=== PATIENT | female | born 1990 | race Caucasian/White ===

== ENCOUNTER → 2017-05-30 | Outpatient (CLI) | payer OTHER ==
[~2017-05-30] MED LIST: BACTRIM DS 8001 TAB PO; BENADRYL25 M1 PO; FAMILY PHARMAC0.4 MG PO; HAIR FORMULA EX1 TAB PO; HYDROCODONE-APA1 TA1 PO; HYOSCYAMINE0.125 M2 PO; IRON TABLETS325 MG PO; MOTRIN600 M1 PO; PERCOCET 650 MG1 TAB PO; POTASSIUM CHLO10 ME3 PO; PRENATAL PLUS1 TA1 PO; PRENATAL1 TA1 PO; SEPTRA DS 800 M1 TAB PO; TYLENOL325 MG PO; WOMEN'S DAILY1 TAB PO
[2017-05-30 11:01] LABS: HEMOGLOBIN 13.8 g/dL (12.2-16.2); LYMPH # 1.6 K/mm3 (0.7-4.5); LYMPH % 21.1 % (10-50.0)
[2017-05-30 12:42] LABS: AMPHETAMINES/METAMPHETAMINES NEGATIVE ng/mL (<1000)
[2017-05-30 14:19] LABS: ABO BLOOD TYPE A; RH BLOOD TYPE POSITIVE
[2017-05-31 19:28] LABS: HIV Screen 4th Generation wRfx Non Reactive (Non Reactive); Rapid Plasma Reagin, Quant Non Reactive (NonRea<1:1); Rubella Antibodies, IgG 4.86 index (Immune >0.99)
[2017-05-31 20:04] LABS: HBsAg Screen Negative (Negative)
== END ==
LOC: LAB 10:36
PROVIDERS: Obstetrics & Gynecology
DX: Z36 Encounter for antenatal screening of mother (principal); Z04.8 Encounter for examination and observation for other specified reasons; Z34.80 Encounter for supervision of other normal pregnancy, unspecified trimester
CPT/HCPCS: G0432

== ENCOUNTER → 2017-07-18 | Outpatient (CLI) | payer OTHER ==
[2017-07-24 12:11] LABS: Gest. Age on Collection Date 16.1; Results REPORT
[2017-07-24 12:12] LABS: AFP Value 47.6; DIA MoM 1.07; DIA Value 189.39; DSR (Second Trimester) 1 IN 5942; Insulin Dep Diabetes NOT PROVIDED; Maternal Age At EDD 29.5; OSBR Risk 1 IN 2965; hCG MoM 1.04; hCG Value 40474; uE3 MoM 0.94; uE3 Value 0.78
== END ==
LOC: LAB 10:19
PROVIDERS: Obstetrics & Gynecology
DX: Z36 Encounter for antenatal screening of mother (principal)

== ENCOUNTER 2017-09-24 12:49 | Outpatient (CLI) | payer OTHER ==
[~2017-09-24] VITALS: Ht 160 cm; Wt 75.3 kg
[2017-09-24 13:37] VITALS: BP 119/62
[2017-09-24 13:39] LABS: HEMOGLOBIN 11.7 g/dL (12.2-16.2); LYMPH # 1.7 K/mm3 (0.7-4.5)
[2017-09-24 14:13] LABS: URINE BILIRUBIN - DIPSTICK NEGATIVE (NEG); URINE BLOOD NEGATIVE (NEG)
== END 2017-09-24 14:15 | disposition home or self-care (01) ==
LOC: OB 12:49 → OBOUT 12:49
PROVIDERS: Nurse Practitioner Obstetrics & Gynecology
DX: O26.92 Pregnancy related conditions, unspecified, second trimester (principal); Z3A.25 25 weeks gestation of pregnancy; R10.9 Unspecified abdominal pain; R19.7 Diarrhea, unspecified

== ENCOUNTER 2017-10-12 09:46 | Emergency (ER) | payer OTHER ==
[~2017-10-12] VITALS: Ht 160 cm; Wt 77.1 kg
--- OUTSIDE RECORDS SUMMARY | 2017-10-12 09:51 | External Medical Summary Rpt | CCD ---
Author Author , JARON SALMERON Address Unknown Phone [email or web address] Care Team Providers Care Bill Distributor Name Role Phone Duog Cleveland MD, Unavailable Unavailable Doug Cleveland MD [facility], [facility] Purpose Continuity of Care Document - 01-26-2013 through 2016 Problems Code Diagnosis DOS Provider Status [id number] [facility] K56.7 ILEUS, UNSPECIFIED Allergies, Adverse Reactions, Alerts Type Drug Allergy Adverse Reaction to Substance Substance Reaction Severity Erythromycin I-HIVES Intermediate Medications Na ND Rx Da Fi Fi Am Da Di Ph RX Ph St me C No te ll ll ou ys ag ar # ys at rm s nt no ma ic us Or Da si cy ia de te s n re d TR 04 03 2 No OL 11 -1 AM 67 3- Lo IN 05 20 ng E 70 13 er SA 3 LI Ac CY ti LA ve TE 10 % CR EA M Ce 00 03 0 No fa 78 -1 zo 19 3- Lo li 33 20 ng n 99 13 er 1G 6 M Ac Vi ti al ve SO 00 03 0 No DI 40 -1 UM 97 3- Lo 98 20 ng CH 43 13 er LO 7 RI Ac DE ti ve 0. 9% SO DEREJE TI ON Ce 00 03 0 No fa 78 -1 zo 19 2- Lo li 33 20 ng n 99 13 er 1G 6 M Ac Vi ti al ve AM 00 03 1 No PI 78 -1 CI 19 2- Lo LL 41 20 ng IN 39 13 er 2 2 Ac GM ti ve A- V AL So 00 03 1 No di 07 -1 um 47 2- Lo 10 20 ng Ch 12 13 er lo 3 ri Ac de ti ve 0. 9% 10 0M L Ad v SO 00 03 1 No DI 40 -1 UM 97 2- Lo 98 20 ng CH 42 13 er LO 0 RI Ac DE ti ve 0. 9% SO DEREJE TI ON Ce 00 03 1 No fa 78 -1 zo 19 2- Lo li 33 20 ng n 99 13 er 1G 6 M Ac Vi ti al ve DE 00 03 1 No XT 40 -1 RO 97 2- Lo SE 92 20 ng 90 13 er 5% 9 -L Ac R ti IV ve SO DEREJE TI ON PI 11 03 0 No TO 11 -1 CI 11 2- Lo N 11 20 ng 30 13 13 er 3 UN Ac IT ti S/ ve LR 50 0M L IV LA [address] 40 -1 AT 97 2- Lo ED 95 20 ng 30 13 er RI 9 NG Ac ER ti S ve IN JE CT IO N Ce 00 03 0 No fa 78 -1 zo 19 2- Lo li 33 20 ng n 99 13 er 1G 6 M Ac Vi ti al ve MA 00 03 3 No PA 90 -1 P 41 2- Lo 32 98 20 ng 5 26 13 er MG 1 Ac TA ti BL ve ET Ib 62 03 3 No up 58 -1 ro 40 2- Lo fe 74 20 ng n 60 13 er 40 1 0M Ac G ti Ta ve bl et TE 20 03 3 No ND 45 -1 ER 10 2- Lo 87 20 ng CA 12 13 er RE 2 Ac LA ti NO ve LI N CR EA M Mo 00 03 1 No rp 40 -1 hi 91 2- Lo ne 76 20 ng 23 13 er 2M 0 G/ Ac Ml ti ve Sy ri ng e OX 00 03 3 No YC 40 -1 OD 60 2- Lo ON 55 20 ng E 26 13 er HC 2 L Ac 5 ti MG ve TA BL ET SE 67 03 3 No NO 61 -1 KO 80 2- Lo T- 31 20 ng S 00 13 er TA 1 BL Ac ET ti ve Si 00 03 3 No me 18 -1 th 28 2- Lo ic 64 20 ng on 38 13 er e 9 80 Ac MG ti ve Ch ew ab le Ta bl MO 00 03 1 No OM 64 -1 ET 11 2- Lo WARREN 49 20 ng ZI 53 13 er NE 5 Ac 25 ti ve MG /M L AM PU L Vital Signs 01-26-2013 12:21 Name Value Interpretat Reference Comment ion Range Weight 173 [lb_av] Measured Weight 78.472 kg Measured Results Labs Lab Lab Date Result Refere Interp Status Commen Order Detail nces retati t Range on CBC w auto diff (09-24-2017 13:30) Blood = 12.2 4.8-10. complet leukocy 017 K/MM3 8 ed nan 13:30 count (number /volume ) Automat = 13.2 11.5-17 complet ed 017 % .5 ed erythro 13:30 cyte distrib ution width Red = 3.89 4.2-5.4 complet blood 017 M/mm3 ed cell 13:30 count Blood = 210 142-424 complet platele 017 K/mm3 ed t count 13:30 Automat = 7.7 7.4-10. complet ed 017 fl 4 ed blood 13:30 platele t mean volume darien Davie % = 3.6 % 1.7-9.3 complet 017 ed 13:30 Absolut = 0.4 0.1-1.0 complet e 017 K/mm3 ed monocyt 13:30 e count Automat = 89.0 82.2-97 complet ed 017 fl .8 ed erythro 13:30 cyte mean corpusc ular v Automat = 33.9 31.8-35 complet ed 017 g/dl .4 ed erythro 13:30 cyte mean corpusc ular h Mean = 30.2 27-31.2 complet corpusc 017 pg ed ular 13:30 hemoglo bin (MCH) determ Lymphoc = 14.0 10-50.0 complet yte 017 % ed count, 13:30 blood, automat ed Absolut = 1.7 0.7-4.5 complet e 017 K/mm3 ed lymphoc 13:30 yte count Blood = 11.7 12.2-16 complet hemoglo 017 g/dL .2 ed bin 13:30 measure ment (mass/v olum Blood = 34.6 37.0-47 complet hematoc 017 % .0 ed rit 13:30 (volume fractio n) Granulo = 80.5 37.0-80 complet cyte 017 % .0 ed percent 13:30 age Blood = 9.8 1.8-7.8 complet granulo 017 K/mm3 ed cytes 13:30 automat ed count (numb Automat = 1.6 % 0.1-12. complet ed 017 0 ed blood 13:30 eosinop hils/10 0 leukocy t Automat = 0.2 0.0-0.4 complet ed 017 K/mm3 ed blood 13:30 eosinop hil count Baso % = 0.2 % 0.1-2.0 complet 017 ed 13:30 Automat = 0.0 0-0.2 complet ed 017 K/MM3 ed blood 13:30 basophi l count (count/ vo Basic metabolic panel (09-24-2017 13:30) Serum = 139 136-145 complet sodium 017 mmoL/L ed measure 13:30 ment Serum = 3.1 3.5-5.1 complet potassi 017 mmoL/L ed um 13:30 measure ment Serum = 126 74-106 complet or 017 mg/dL ed plasma 13:30 glucose measure ment (mas Estimat = 118 59- complet ed 017 ML/MIN ed glomeru 13:30 lar filtrat ion rate (GF Comment: REFERENCE RANGE: >60 ML/MIN/1.73 SQUARE METERS Comment: If this patient is -Vincentian, then multiply the Comment: result by 1.210. Estimat = 164 50-200 complet ion of 017 ML/MIN ed creatin 13:30 ine renal clearan ce Serum = 0.6 0.55-1. complet or 017 mg/dL 02 ed plasma 13:30 creatin ine measure ment ( Carbon = 22 21.0-32 complet dioxide 017 mmoL/L .0 ed 13:30 measure ment Serum = 106 98-107 complet or 017 mmoL/L ed plasma 13:30 chlorid e measure ment (mo Serum = 8.5 8.5-10. complet or 017 mg/dL 1 ed plasma 13:30 calcium measure ment (mas Serum = 5 7-18 complet or 017 mg/dL ed plasma 13:30 urea nitroge n measure men Urinalysis with microscopy (09-24-2017 13:00) Comment: Collected by nurse? Y Comment: Hold specimen in OE? N Urine 20 - 50 O complet leukocy 017 ed nan 13:00 wbc/hpf count (number /volume ) Urine 0.2 0.2 NEG complet urobili 017 L ed nogen 13:00 E.U./dL detecti on by test str [place] 10-20 0-5 complet s 017 10-20 L ed epithel 13:00 #/hpf ial cells detecti on in u Urine = 1.020 1.005-1 complet specifi 017 .030 ed c 13:00 gravity measure ment Urine = NEG complet protein 017 NEGATIV ed 13:00 E mg/dL measure ment by automat ed t Urine = 6.0 5.0-8.5 complet pH 017 ed 13:00 Urine NEGATIV NEG complet nitrite 017 E ed 13:00 NEGATIV detecti E L on by test strip Mucus 1+ 1+ L OCC complet detecti 017 ed on in 13:00 urine sedimen t by lig Mucus 2+ 2+ L NEG complet detecti 017 ed on in 13:00 urine sedimen t by lig Urine NEGATIV NEG complet ketones 017 E ed 13:00 NEGATIV detecti E L on by mg/dL automat ed nan Glucose = NEG complet ur 017 NEGATIV ed test 13:00 E strip Urine YELLOW YELLOW complet color 017 YELLOW ed 13:00 L Urine NEGATIV NEG complet blood 017 E ed detecti 13:00 NEGATIV on E L Urine NEGATIV NEG complet total 017 E ed bilirub 13:00 NEGATIV in E L detecti on by test Bacteri 2+ 2+ L O complet a 017 ed detecti 13:00 on in urine sedimen t by Urine SL CLEAR complet appeara 017 CLOUDY ed nce 13:00 SL determi CLOUDY nation L Urinalysis dipstick W Reflex Microscopic panel in Urine (09-24-2017 13:00) Bacteri 2+ O complet a 017 ed [Presen 13:00 ce] in Urine sedimen t by Light microsc opy Mucus 1+ OCC complet [Presen 017 ed ce] in 13:00 Urine sedimen t by Light microsc opy Epithel 10-20 0#/hp complet ial 017 f - ed cells.s 13:00 5#/hp quamous f [Presen ce] in Urine sedimen t by Microsc opy high power field Leukocy 20-50 O complet nan 017 wbc/hpf ed [#/volu 13:00 me] in Urine Urinalysis dipstick W Reflex Microscopic panel in Urine (09-24-2017 13:00) Appeara SL CLEAR complet nce of 017 CLOUDY ed Urine 13:00 Bilirub NEGATIV NEG complet in 017 E ed [Presen 13:00 ce] in Urine by Test strip Erythro NEGATIV NEG complet cytes 017 E ed [Presen 13:00 ce] in Urine Color YELLOW YELLOW complet of 017 ed Urine 13:00 Ketones NEGATIV NEG complet 017 E ed [Presen 13:00 ce] in Urine by Automat ed test strip Mucus 2+ NEG Abnorma complet [Presen 017 l ed ce] in 13:00 Urine sedimen t by Light microsc opy Nitrite NEGATIV NEG complet 017 E ed [Presen 13:00 ce] in Urine by Test strip Urobili 0.2 NEG complet nogen 017 ed [Presen 13:00 ce] in Urine by Test strip Glucose, 1 hour after glucose administra (09-19-2017 14:30) Urine TRACE complet glucose 017 TRACE L ed 14:30 mg/ml detecti on by test strip Serum = 88 complet or 017 mg/dL ed plasma 14:30 glucose measure ment 1 ho CBC w auto diff (09-19-2017 14:30) Blood = 10.1 4.8-10. complet leukocy 017 K/MM3 8 ed nan 14:30 count (number /volume ) Automat = 13.2 11.5-17 complet ed 017 % .5 ed erythro 14:30 cyte distrib ution width Red = 4.01 4.2-5.4 complet blood 017 M/mm3 ed cell 14:30 count Blood = 225 142-424 complet platele 017 K/mm3 ed t count 14:30 Automat = 7.7 7.4-10. complet ed 017 fl 4 ed blood 14:30 platele t mean volume darien Davie % = 5.0 % 1.7-9.3 complet 017 ed 14:30 Absolut = 0.5 0.1-1.0 complet e 017 K/mm3 ed monocyt 14:30 e count Automat = 90.1 82.2-97 complet ed 017 fl .8 ed erythro 14:30 cyte mean corpusc ular v Automat = 33.9 31.8-35 complet ed 017 g/dl .4 ed erythro 14:30 cyte mean corpusc ular h Mean = 30.5 27-31.2 complet corpusc 017 pg ed ular 14:30 hemoglo bin (MCH) determ Lymphoc = 13.4 10-50.0 complet yte 017 % ed count, 14:30 blood, automat ed Absolut = 1.4 0.7-4.5 complet e 017 K/mm3 ed lymphoc 14:30 yte count Blood = 12.2 12.2-16 complet hemoglo 017 g/dL .2 ed bin 14:30 measure ment (mass/v olum Blood = 36.1 37.0-47 complet hematoc 017 % .0 ed rit 14:30 (volume fractio n) Granulo = 79.7 37.0-80 complet cyte 017 % .0 ed percent 14:30 age Blood = 8.1 1.8-7.8 complet granulo 017 K/mm3 ed cytes 14:30 automat ed count (numb Automat = 1.7 % 0.1-12. complet ed 017 0 ed blood 14:30 eosinop hils/10 0 leukocy t Automat = 0.2 0.0-0.4 complet ed 017 K/mm3 ed blood 14:30 eosinop hil count Baso % = 0.2 % 0.1-2.0 complet 017 ed 14:30 Automat = 0.0 0-0.2 complet ed 017 K/MM3 ed blood 14:30 basophi l count (count/ vo Glucose [Presence] in Urine by Test strip --1 hour post 75 g glucose PO (09-19-2017 14:30) Glucose TRACE complet 017 ed [Presen 14:30 ce] in Urine by Test strip Blood group antibody screen [Presence] in Serum or Plasma (05-30-2017 10:39) Blood NEGATIV NEGATIV complet group 017 E E ed antibod 10:39 y screen [Presen ce] in Serum or Plasma Rh [Type] in Blood (05-30-2017 10:39) Rh POSITIV complet [Type] 017 E ed in 10:39 Blood ABO group [Type] in Blood (05-30-2017 10:39) ABO A complet group 017 ed [Type] 10:39 in Blood Drugs identified in Urine by Screen method (05-30-2017) Ampheta NEGATIV <1000 complet mine 017 E ed [Presen ce] in Urine by Screen method 11-Hydr NEGATIV <50 complet oxy 017 E ed delta-9 tetrahy drocann abinol [Presen ce] in Unspeci fied specime n Choriogonadotropin.beta subunit ( test) [Presence] in Serum or Plasma (04-08-2017 10:12) Choriog 0 complet onadotr 017 ed opin.be 10:12 ta subunit (pregna ncy test) [Presen ce] in Serum or Plasma pH BldCo (01-26-2013 20:50) pH 7.36 7.35-7. complet BldCo 013 UNK 45 ed 20:50 URINALYSIS/COMPLETE (01-26-2013 14:09) URINE YELLOW YELLOW complet COLOR 013 ed 14:09 URINE CLEAR CLEAR complet APPEARA 013 ed NCE 14:09 URINE NEGATIV NEG complet GLUCOSE 013 E ed - 14:09 DIPSTIC K URINE NEGATIV NEG complet BILIRUB 013 E ed IN - 14:09 DIPSTIC K URINE NEGATIV NEG complet KETONE 013 E mg/dL ed 14:09 URINE 1.015 1.005-1 complet SPECIFI 013 UNK .030 ed C 14:09 GRAVITY URINE NEGATIV NEG complet BLOOD 013 E ed 14:09 URINE 8.0 UNK 5.0-8.5 complet PH 013 ed 14:09 URINE NEGATIV NEG complet PROTEIN 013 E mg/dL ed - 14:09 DIPSTIC K URINE 0.2 NEG complet UROBILI 013 E.U./dL ed NOGEN - 14:09 DIPSTIC K URINE NEGATIV NEG complet NITRATE 013 E ed - 14:09 DIPSTIC K URINE NEGATIV NEG complet LEUK 013 E ed ESTERAS 14:09 E URINE OCC 0 complet RBC 013 rbc/hpf ed 14:09 URINE 5-10 0-5 complet SQUAMOU 013 #/hpf ed S CELLS 14:09 URINE 1+ O complet BACTERI 013 ed A 14:09 URINE 2+ NONE complet AMORPH 013 ed SEDIMEN 14:09 T CBC with AUTO DIFF (01-26-2013 05:35) WBC # 12.2 4.8-10. complet Bld 013 K/MM3 8 ed Auto 05:35 RBC # 4.04 4.2-5.4 complet Bld 013 M/mm3 ed Auto 05:35 Hgb 12.7 12.2-16 complet Bld-mCn 013 g/dL .2 ed c 05:35 Hct Fr 36.8 % 37.0-47 complet Bld 013 .0 ed 05:35 MCV RBC 03-12-2 91.2 fl 82.2-97 complet 013 .8 ed 05:35 MCH RBC 01-26-2 31.4 pg 27-31.2 complet Qn 013 ed Auto 05:35 MEAN 01-26-2 34.5 31.8-35 complet CORPUSC 013 g/dl .4 ed ULAR 05:35 HGB CONC RDW RBC 14.2 % 11.5-17 complet Auto 013 .5 ed 05:35 Platele 01-26-2 220 142-424 complet t Bld 013 K/mm3 ed Ql 05:35 Manual MEAN 8.0 fl 7.4-10. complet PLATELE 013 4 ed T 05:35 VOLUME Granulo 01-26-2 73.5 % 37.0-80 complet cytes 013 .0 ed Fr Bld 05:35 Auto LYMPH % 01-26-2 19.4 % 10-50.0 complet 013 ed 05:35 Monocyt 01-26-2 6.2 % 1.7-9.3 complet es Fr 013 ed Bld 05:35 Auto Eosinop -12-2 0.7 % 0.1-12. complet hil Fr 013 0 ed Bld 05:35 Auto Basophi 12-2 0.2 % 0.1-2.0 complet ls Fr 013 ed Bld 05:35 Auto Granulo 01-26-2 8.9 1.8-7.8 complet cytes # 013 K/mm3 ed Bld 05:35 Auto Lymphoc 01-26-2 2.4 0.7-4.5 complet ytes Fr 013 K/mm3 ed Bld 05:35 Auto Monocyt 12-2 0.8 0.1-1.0 complet es # 013 K/mm3 ed Bld 05:35 Auto Eosinop -12-2 0.1 0.0-0.4 complet hil # 013 K/mm3 ed Bld 05:35 Auto Basophi 12-2 0.0 0-0.2 complet ls # 013 K/MM3 ed Bld 05:35 Auto Procedures Procedure DOS Code Location Performer Comment LOW 74.1 Doug Cleveland [facility] Encounters Encounter Start End Date Code Location Performer Type Date Inpatient IMP Jermain Cleveland MD ([place]) 3 04:55 3 11:40 [facility].
--- OUTSIDE RECORDS SUMMARY | 2017-10-12 09:51 | External Medical Summary Rpt | CCD ---
Author Author , JARON SALMERON Address Unknown Phone beatricerosa .[employer] Care Team Providers Care Biometrics Instructor Name Role Phone Doug Cleveland MD, Unavailable Unavailable Doug Cleveland MD [facility], [facility] Purpose Continuity of Care Document - 01-26-2013 through 2016 Problems Code Diagnosis DOS Provider Status [id number] [facility] K56.7 ILEUS, UNSPECIFIED Allergies, Adverse Reactions, [...] ve Ch ew ab le Ta bl HI 00 03 1 No OM 64 -1 [...] blood 13:30 platele t mean volume darien [place] % = 3.6 % 1.7-9.3 complet 017 [...] SQUARE METERS Comment: If this patient is -Ukrainian, then multiply the Comment: result by 1.210. [...] blood 14:30 platele t mean volume darien [place] % = 5.0 % 1.7-9.3 complet 017 [...] Cleveland MD ([place]) 3 04:55 3 11:40 [facility].
--- OUTSIDE RECORDS SUMMARY | 2017-10-12 09:52 | External Medical Summary Rpt | CCD ---
Demographics Preferred Language Belizean Marital Status Unknown Church Affiliation Unknown Race Unknown Ethnic Group Unknown Author Author , JARON SALMEORN Address Unknown Phone Immunization No patient found.
--- OUTSIDE RECORDS SUMMARY | 2017-10-12 09:52 | External Medical Summary Rpt | CCD ---
Demographics Preferred Language Djiboutian Marital Status Unknown Jain Affiliation Unknown Race Unknown Ethnic Group Unknown Author Author , JARON SALMERON Address Unknown Phone Immunization No patient found.
--- OUTSIDE RECORDS SUMMARY | 2017-10-12 09:52 | External Medical Summary Rpt | CCD ---
Author Author [employer] Organization [employer] Address Unknown Phone Unavailable Purpose Continuity of Care Document - through 2016
--- OUTSIDE RECORDS SUMMARY | 2017-10-12 09:52 | External Medical Summary Rpt ---
Author Author EMMANAMAN Perez, JARON [employer] Address Unknown Phone Unavailable Results CBC W Auto Differential panel in Blood Observa Value Referen Units Interpr Notes Date tion ce etation Range Basophils 0 - 0.2 K/MM3 Normal No Sep 8 informati 2016 1:30 [#/volume on in PM ] in source Blood by data Automated count Basophils 0.1 - 2.0 % Normal No Sep 24 /100 informati 2017 1:30 leukocyte on in PM s in source Blood by data Automated count Eosinophi 0.0 - 0.4 K/mm3 Normal No Sep 24 ls informati 2016 1:30 [#/volume on in PM ] in source Blood by data Automated count Eosinophi 0.1 - % Normal No Sep 24 ls/100 12.0 informati 2017 1:30 leukocyte on in PM s in source Blood by data Automated count Granulocy 1.8 - 7.8 K/mm3 High No Sep 8 nan informati 2017 1:30 [#/volume on in PM ] in source Blood by data Automated count Granulocy 37.0 - % High No Sep 8 nan/100 80.0 informati 2016 1:30 leukocyte on in PM s in source Blood by data Automated count Hematocri 37.0 - % Low No Sep 24 t [Volume 47.0 informati 2016 1:30 on in PM Fraction] source of Blood data Hemoglobi 12.2 - g/dL Low No Sep 24 n 16.2 informati 2016 1:30 [Mass/vol on in PM ume] in source Blood data Lymphocyt 0.7 - 4.5 K/mm3 Normal No Sep 8 es informati 2016 1:30 [#/volume on in PM ] in source Unspecifi data ed specimen by Automated count Lymphocyt 10 - 50.0 % Normal No Sep 24 es informati 2016 1:30 [#/volume on in PM ] in source Unspecifi data ed specimen by Automated count Erythrocy 27 - 31.2 pg Normal No Sep 24 te mean informati 2017 1:30 corpuscul on in PM ar source hemoglobi data n [Entitic mass] Erythrocy 31.8 - g/dl Normal No Sep 24 te mean 35.4 informati 2016 1:30 corpuscul on in PM ar source hemoglobi data n concentra tion [Mass/vol ume] by Automated count Erythrocy 82.2 - fl Normal No Sep 24 te mean 97.8 informati 2016 1:30 corpuscul on in PM ar volume source [Entitic data volume] by Automated count Monocytes 0.1 - 1.0 K/mm3 Normal No Sep 24 informati 2016 1:30 [#/volume on in PM ] in source Blood by data Automated count Monocytes 1.7 - 9.3 % Normal No Sep 24 /100 informati 2017 1:30 leukocyte on in PM s in source Blood by data Automated count Platelet 7.4 - fl Normal No Sep 24 mean 10.4 informati 2016 1:30 volume on in PM [Entitic source volume] data in Blood by Automated count Platelets 142 - 424 K/mm3 Normal No Sep 24 informati 2016 1:30 [#/volume on in PM ] in source Blood data Erythrocy 4.2 - 5.4 M/mm3 Low No Sep 24 nan informati 2016 1:30 [#/volume on in PM ] in source Amniotic data fluid Erythrocy 11.5 - % Normal No Sep 24 te 17.5 informati 2016 1:30 distribut on in PM ion width source [Entitic data volume] by Automated count Leukocyte 4.8 - K/MM3 High No Sep 24 s 10.8 informati 2016 1:30 [#/volume on in PM ] in source Blood data Basic metabolic panel in Blood Observa Value Referen Units Interpr Notes Date tion ce etation Range Urea 7 - 18 mg/dL Low No Sep 24 nitrogen informati 2016 1:30 [Mass/vol on in PM ume] in source Serum or data Plasma Calcium 8.5 - mg/dL Normal No Sep 24 [Mass/vol 10.1 informati 2016 1:30 ume] in on in PM Serum or source Plasma data Chloride 98 - 107 mmoL/L Normal No Sep 24 [Moles/vo informati 2016 1:30 lume] in on in PM Serum or source Plasma data Carbon 21.0 - mmoL/L Normal No Sep 24 dioxide, 32.0 informati 2017 1:30 total on in PM [Moles/vo source lume] in data Serum or Plasma Creatinin 0.55 - mg/dL Normal No Sep 8 e 1.02 informati 2016 1:30 [Mass/vol on in PM ume] in source Serum or data Plasma Creatinin 50 - 200 ML/MIN Normal No Sep 24 e renal informati 2016 1:30 clearance on in PM source predicted data by Cockcroft -Gault formula Estimated 59- ML/MIN No REFERENCE Sep 24 informati RANGE: 2017 1:30 glomerula on in >60 PM r source ML/MIN/1. filtratio data 73 SQUARE n rate METERSIf (GF this patient is -A merican, then multiply theresult by 1.210. Glucose 74 - 106 mg/dL High No Sep 24 [Mass/vol informati 2016 1:30 ume] in on in PM Serum or source Plasma data Potassium 3.5 - 5.1 mmoL/L Low No Sep 24 informati 2016 1:30 [Moles/vo on in PM lume] in source Serum or data Plasma Sodium 136 - 145 mmoL/L Normal No Sep 24 [Moles/vo informati 2016 1:30 lume] in on in PM Serum or source Plasma data Urinalysis dipstick W Reflex Microscopic panel in Urine Observa Value Referen Units Interpr Notes Date tion ce etation Range Collected by nurse? Y Hold specimen in OE? N Appeara SL CLEAR No No No Sep 24 nce of CLOUDY informa informa informa 2016 Urine tion in tion in tion in 1:00 PM source source source data data data Bacteri 2+ O No No No Sep 24 a informa informa informa 2016 [Presen tion in tion in tion in 1:00 PM ce] in source source source Urine data data data sedimen t by Light microsc opy Bilirub NEGATIV NEG No No No Sep 24 in E informa informa informa 2016 [Presen tion in tion in tion in 1:00 PM ce] in source source source Urine data data data by Test strip Erythro NEGATIV NEG No No No Sep 24 cytes E informa informa informa 2016 [Presen tion in tion in tion in 1:00 PM ce] in source source source Urine data data data Color YELLOW YELLOW No No No Nov 8 of informa informa informa 2017 Urine tion in tion in tion in 1:00 PM source source source data data data Glucose NEG No No No Nov 8 [Mass/vol informati informati informati 2017 1:00 ume] in on in on in on in PM Urine by source source source Test data data data strip Ketones NEGATIV NEG mg/dL No No Nov 8 E informa informa 2017 [Presen tion in tion in 1:00 PM ce] in source source Urine data data by Automat ed test strip Mucus 2+ NEG No Abnorma No Nov 8 [Presen informa l informa 2017 ce] in tion in tion in 1:00 PM Urine source source sedimen data data t by Light microsc opy Mucus 1+ OCC No No No Nov 8 [Presen informa informa informa 2017 ce] in tion in tion in tion in 1:00 PM Urine source source source sedimen data data data t by Light microsc opy Nitrite NEGATIV NEG No No No Nov 8 E informa informa informa 2017 [Presen tion in tion in tion in 1:00 PM ce] in source source source Urine data data data by Test strip pH of 5.0 - 8.5 No Normal No Nov 8 Urine informati informati 2017 1:00 on in on in PM source source data data Protein NEG mg/dL No No Nov 8 [Mass/vol informati informati 2017 1:00 ume] in on in on in PM Urine by source source Automated data data test strip Specific 1.005 - No Normal No Nov 8 gravity 1.030 informati informati 2017 1:00 of Urine on in on in PM source source data data Epithel 10-20 0 - 5 #/hpf No No Nov 8 ial informa informa 2017 cells.s tion in tion in 1:00 PM quamous source source data data [Presen ce] in Urine sedimen t by Microsc opy high power field Urobili 0.2 NEG E.U./dL No No Nov 8 nogen informa informa 2017 [Presen tion in tion in 1:00 PM ce] in source source Urine data data by Test strip Leukocy [20 O wbc/hpf No No Nov 8 nan wbc/hpf informa informa 2017 [#/volu ; 50 tion in tion in 1:00 PM me] in wbc/hpf source source Urine ] data data Urinalysis dipstick W Reflex Microscopic panel in Urine Observa Value Referen Units Interpr Notes Date tion ce etation Range Collected by nurse? Y Hold specimen in OE? N Appeara SL CLEAR No No No Nov 8 nce of CLOUDY informa informa informa 2016 Urine tion in tion in tion in 1:00 PM source source source data data data Bilirub NEGATIV NEG No No No Sep 8 in E informa informa informa 2016 [Presen tion in tion in tion in 1:00 PM ce] in source source source Urine data data data by Test strip Erythro NEGATIV NEG No No No Sep 8 cytes E informa informa informa 2016 [Presen tion in tion in tion in 1:00 PM ce] in source source source Urine data data data Color YELLOW YELLOW No No No Nov 8 of informa informa informa 2016 Urine tion in tion in tion in 1:00 PM source source source data data data Glucose NEG No No No Sep 8 [Mass/vol informati informati informati 2017 1:00 ume] in on in on in on in PM Urine by source source source Test data data data strip Ketones NEGATIV NEG mg/dL No No Nov 8 E informa informa 2016 [Presen tion in tion in 1:00 PM ce] in source source Urine data data by Automat ed test strip Mucus 2+ NEG No Abnorma No Sep 8 [Presen informa l informa 2016 ce] in tion in tion in 1:00 PM Urine source source sedimen data data t by Light microsc opy Nitrite NEGATIV NEG No No No Nov 8 E informa informa informa 2016 [Presen tion in tion in tion in 1:00 PM ce] in source source source Urine data data data by Test strip pH of 5.0 - 8.5 No Normal No Nov 8 Urine informati informati 2017 1:00 on in on in PM source source data data Protein NEG mg/dL No No Nov 8 [Mass/vol informati informati 2017 1:00 ume] in on in on in PM Urine by source source Automated data data test strip Specific 1.005 - No Normal No Sep 8 gravity 1.030 ati informati 2016 1:00 of Urine on in on in PM source source data data Urobili 0.2 NEG E.U./dL No No Sep 8 nogen inform inform2016 [Presen tion in tion in 1:00 PM ce] in source source Urine data data by Test strip Glucose [Presence] in Urine by Test strip --1 hour post 75 g glucose PO Observa Value Referen Units Interpr Notes Date tion ce etation Range Glucose No mg/dL No No Sep 19 [Mass/vol informati informati informati 2016 2:30 ume] in on in on in on in PM Serum or source source source Plasma data data data --1 hour post dose glucose Glucose TRACE No mg/ml No No Sep 3 informa informa inform2016 [Presen tion in tion in tion in 2:30 PM ce] in source source source Urine data data data by Test strip CBC W Auto Differential panel in Blood Observa Value Referen Units Interpr Notes Date tion ce etation Range Basophils 0 - 0.2 K/MM3 Normal No Sep 3 2016 2:30 [#/volume on in PM ] in source Blood by data Automated count Basophils 0.1 - 2.0 % Normal No Sep 3 /100 inform2016 2:30 leukocyte on in PM s in source Blood by data Automated count Eosinophi 0.0 - 0.4 K/mm3 Normal No Sep 3 ls 2016 2:30 [#/volume on in PM ] in source Blood by data Automated count Eosinophi 0.1 - % Normal No Sep 3 ls/100 12.0 inform2016 2:30 leukocyte on in PM s in source Blood by data Automated count Granulocy 1.8 - 7.8 K/mm3 High No Sep 3 nan 2016 2:30 [#/volume on in PM ] in source Blood by data Automated count Granulocy 37.0 - % Normal No Sep 3 nan/100 80.0 informati 2016 2:30 leukocyte on in PM s in source Blood by data Automated count Hematocri 37.0 - % Low No Sep 3 t [Volume 47.0 2016 2:30 on in PM Fraction] source of Blood data Hemoglobi 12.2 - g/dL No No Sep 3 n 16.2 informati informati 2017 2:30 [Mass/vol on in on in PM ume] in source source Blood data data Lymphocyt 0.7 - 4.5 K/mm3 Normal No Sep 3 es informati 2017 2:30 [#/volume on in PM ] in source Unspecifi data ed specimen by Automated count Lymphocyt 10 - 50.0 % Normal No Sep 3 es informati 2016 2:30 [#/volume on in PM ] in source Unspecifi data ed specimen by Automated count Erythrocy 27 - 31.2 pg Normal No Sep 3 te mean informati 2017 2:30 corpuscul on in PM ar source hemoglobi data n [Entitic mass] Erythrocy 31.8 - g/dl Normal No Sep 3 te mean 35.4 informati 2017 2:30 corpuscul on in PM ar source hemoglobi data n concentra tion [Mass/vol ume] by Automated count Erythrocy 82.2 - fl Normal No Sep 3 te mean 97.8 informati 2016 2:30 corpuscul on in PM ar volume source [Entitic data volume] by Automated count Monocytes 0.1 - 1.0 K/mm3 Normal No Sep 3 informati 2017 2:30 [#/volume on in PM ] in source Blood by data Automated count Monocytes 1.7 - 9.3 % Normal No Sep 3 /100 informati 2017 2:30 leukocyte on in PM s in source Blood by data Automated count Platelet 7.4 - fl Normal No Sep 3 mean 10.4 informati 2017 2:30 volume on in PM [Entitic source volume] data in Blood by Automated count Platelets 142 - 424 K/mm3 Normal No Sep 3 informati 2016 2:30 [#/volume on in PM ] in source Blood data Erythrocy 4.2 - 5.4 M/mm3 Low No Sep 3 nan informati 2017 2:30 [#/volume on in PM ] in source Amniotic data fluid Erythrocy 11.5 - % Normal No Sep 3 te 17.5 informati 2017 2:30 distribut on in PM ion width source [Entitic data volume] by Automated count Leukocyte 4.8 - K/MM3 Normal No Sep 3 s 10.8 informati 2016 2:30 [#/volume on in PM ] in source Blood data AFP Tetra Observa Value Referen Units Interpr Notes Date tion ce etation Range Results REPORT No No No No Sep 1 informa informa informa informa 2017 tion in tion in tion in tion in 10:21 source source source source AM data data data data Alpha-1-F No No No No Sep 1 etoprotei informati informati informati informati 2016 n on in on in on in on in 10:21 AM [Mass/vol source source source source ume] in data data data data Serum or Plasma Alpha-1-F No No No No Sep 1 etoprotei informati informati informati informati 2016 n on in on in on in on in 10:21 AM [Multiple source source source source of the data data data data median] adjusted in Serum or Plasma Choriogon No No No No Sep 1 adotropin informati informati informati informati 2017 on in on in on in on in 10:21 AM [Units/vo source source source source lume] in data data data data Serum or Plasma Choriogon No No No No Sep 1 adotropin informati informati informati informati 2017 on in on in on in on in 10:21 AM [Multiple source source source source of the data data data data median] adjusted in Serum or Plasma Estriol.u No No No No Sep 1 nconjugat informati informati informati informati 2017 ed on in on in on in on in 10:21 AM [Mass/vol source source source source ume] in data data data data Serum or Plasma Estriol.u No No No No Sep 1 nconjugat informati informati informati informati 2017 ed on in on in on in on in 10:21 AM [Multiple source source source source of the data data data data median] adjusted in Serum or Plasma Inhibin A No No No No Sep 1 informati informati informati informati 2017 [Mass/vol on in on in on in on in 10:21 AM ume] in source source source source Serum data data data data Inhibin A No No No No Sep 1 informati informati informati informati 2017 [Multiple on in on in on in on in 10:21 AM of the source source source source median] data data data data adjusted in Serum Neural No No No No Sep 1 tube informati informati informati informati 2017 defect on in on in on in on in 10:21 AM risk in source source source source Fetus data data data data Trisomy No No No No Sep 1 21 risk informati informati informati informati 2017 in Fetus on in on in on in on in 10:21 AM source source source source data data data data Second SCREEN No No No No Sep 1 trimest NEGATIV informa informa informa informa 2017 er quad E tion in tion in tion in tion in 10:21 source source source source AM materna data data data data l screen [interp retatio n] in Serum Narrati ve Trisomy No No No No Sep 1 21 risk informati informati informati informati 2017 based on on in on in on in on in 10:21 AM maternal source source source source age in data data data data Fetus Trisomy No No No No Sep 1 18 risk informati informati informati informati 2017 in Fetus on in on in on in on in 10:21 AM source source source source data data data data Trisomy No No No INTERPRET Sep 1 18 risk informati informati informati ATIONSCRE 2017 based on on in on in on in EN 10:21 AM maternal source source source NEGATIVET age in data data data HIS Fetus RESULT IS SCREEN NEGATIVE FOR OSB, DOWN SYNDROMEA ND TRISOMY 18.[facility] SITE:[facility] OR [id number] [place], [place] [address]OUO: TODD Leyva MDBRAWEI H: [phone] 341LAB: Gestation No No No No Sep 1 al age informati informati informati informati 2017 on in on in on in on in 10:21 AM source source source source data data data data Gestati JOSE MANUEL No No No No Sep 1 onal 01/01/18 informa informa informa informa 2017 age tion in tion in tion in tion in 10:21 method source source source source AM data data data data Age at No No No No Sep 1 delivery informati informati informati informati 2017 on in on in on in on in 10:21 AM source source source source data data data data Mother' CAUCASI No No No No Sep 1 s race AN informa informa informa informa 2017 tion in tion in tion in tion in 10:21 source source source source AM data data data data Body No No No No Sep 1 weight informati informati informati informati 2017 on in on in on in on in 10:21 AM source source source source data data data data Insulin NOT No No No No Sep 1 PROVIDE informa informa informa informa 2017 depende D tion in tion in tion in tion in 10:21 nt source source source source AM diabete data data data data s mellitu s [Presen ce] Multipl NO No No No No Sep 1 e informa informa informa informa 2017 preganc tion in tion in tion in tion in 10:21 y source source source source AM data data data data HBsAg Screen Observa Value Referen Units Interpr Notes Date tion ce etation Range Hepatit Negativ Negativ No No May 30 is B e e informa informa 7 2017 virus tion in tion in 2004:HB 10:39 surface source source SAG AM Ag data data SCREEN [Presen previou ce] in sly Serum reporte by d as: Immunoa NEGATIV ssay [facility] [place], [place] [id number] Directo r: Roland falcon PhD, Phone: [phone] Reagin Ab [Titer] in Serum by RPR Observa Value Referen Units Interpr Notes Date tion ce etation Range Reagin Ab NonRea<1: No No 05/31/17 May 30 [Titer] 1 informati informati 1927:RPR 2017 in Serum on in on in QUANT 10:39 AM by RPR source source previousl data data y reported as: NON REACTIVEP erformed at: [facility] [place], [place] [id number] Custom Frame Assembler: Roland Raman PhD, Phone: [phone] Rubella virus IgG Ab [Units/volume] in Serum by Immunoassay Observa Value Referen Units Interpr Notes Date tion ce etation Range Rubella Immune index No >0.99 May 30 virus IgG >0.99 informati IMMUNENon 2017 Ab on in -immune 10:39 AM [Units/vo source lume] in data <0.90Equi Serum by vocal Immunoass 0.90 - ay 0.99Immun e >0.9907/1 04/02 1928:RUBE LLA IGG previousl y reported as: 4.86>0.99 IMMUNE Reagin Ab [Titer] in Serum by RPR Observa Value Referen Units Interpr Notes Date tion ce etation Range Reagin Ab No No No No May 30 [Titer] informati informati informati informati 2017 in Serum on in on in on in on in 10:39 AM by RPR source source source source data data data data Rubella virus IgG Ab [Units/volume] in Serum by Immunoassay Observa Value Referen Units Interpr Notes Date tion ce etation Range Rubella No No No >0.99 May 30 virus IgG informati informati informati IMMUNE 2017 Ab on in on in on in 10:39 AM [Units/vo source source source lume] in data data data Serum by Immunoass ay Blood group antibody screen [Presence] in Serum or Plasma Observa Value Referen Units Interpr Notes Date tion ce etation Range Blood NEGATIV NEGATIV No No No May 30 group E E informa informa informa 2016 antibod tion in tion in tion in 10:39 y source source source AM screen data data data [Presen ce] in Serum or Plasma Rh [Type] in Blood Observa Value Referen Units Interpr Notes Date tion ce etation Range Rh POSITIV No No No No May 30 [Type] E informa informa informa informa 2016 in tion in tion in tion in tion in 10:39 Blood source source source source AM data data data data ABO group [Type] in Blood Observa Value Referen Units Interpr Notes Date tion ce etation Range ABO A No No No No May 30 group informa informa informa informa 2017 [Type] tion in tion in tion in tion in 10:39 in source source source source AM Blood data data data data Thyrotropin [Units/volume] in Serum or Plasma Observa Value Referen Units Interpr Notes Date tion ce etation Range Thyrotrop 0.358 - uIU/ml Normal No May 30 in 3.740 informati 2016 [Units/vo on in 10:39 AM lume] in source Serum or data Plasma CBC W Auto Differential panel in Blood Observa Value Referen Units Interpr Notes Date tion ce etation Range Basophils 0 - 0.2 K/MM3 Normal No May 30 informati 2016 [#/volume on in 10:39 AM ] in source Blood by data Automated count Basophils 0.1 - 2.0 % Normal No May 30 /100 inform2016 leukocyte on in 10:39 AM s in source Blood by data Automated count Eosinophi 0.0 - 0.4 K/mm3 Normal No May 30 ls informati 2016 [#/volume on in 10:39 AM ] in source Blood by data Automated count Eosinophi 0.1 - % Normal No May 30 ls/100 12.0 informati 2016 leukocyte on in 10:39 AM s in source Blood by data Automated count Granulocy 1.8 - 7.8 K/mm3 Normal No May 30 nan informati 2016 [#/volume on in 10:39 AM ] in source Blood by data Automated count Granulocy 37.0 - % Normal No May 30 nan/100 80.0 informati 2016 leukocyte on in 10:39 AM s in source Blood by data Automated count Hematocri 37.0 - % Normal No May 30 t [Volume 47.0 informati 2016 on in 10:39 AM Fraction] source of Blood data Hemoglobi 12.2 - g/dL Normal No May 30 n 16.2 informati 2016 [Mass/vol on in 10:39 AM ume] in source Blood data Lymphocyt 0.7 - 4.5 K/mm3 Normal No May 30 es informati 2016 [#/volume on in 10:39 AM ] in source Unspecifi data ed specimen by Automated count Lymphocyt 10 - 50.0 % Normal No May 30 es informati 2016 [#/volume on in 10:39 AM ] in source Unspecifi data ed specimen by Automated count Erythrocy 27 - 31.2 pg Normal No May 30 te mean 2016 corpuscul on in 10:39 AM ar source hemoglobi data n [Entitic mass] Erythrocy 31.8 - g/dl Normal No May 30 te mean 35.4 2016 corpuscul on in 10:39 AM ar source hemoglobi data n concentra tion [Mass/vol ume] by Automated count Erythrocy 82.2 - fl Normal No May 30 te mean 97.8 2016 corpuscul on in 10:39 AM ar volume source [Entitic data volume] by Automated count Monocytes 0.1 - 1.0 K/mm3 Normal No May 302016 [#/volume on in 10:39 AM ] in source Blood by data Automated count Monocytes 1.7 - 9.3 % Normal No Codey 14 /100 inform2016 leukocyte on in 10:39 AM s in source Blood by data Automated count Platelet 7.4 - fl Normal No May 30 mean 10.4 informati 2016 volume on in 10:39 AM [Entitic source volume] data in Blood by Automated count Platelets 142 - 424 K/mm3 Normal No May 30 informati 2016 [#/volume on in 10:39 AM ] in source Blood data Erythrocy 4.2 - 5.4 M/mm3 Normal No May 30 nan informati 2016 [#/volume on in 10:39 AM ] in source Amniotic data fluid Erythrocy 11.5 - % Normal No May 30 te 17.5 informati 2016 distribut on in 10:39 AM ion width source [Entitic data volume] by Automated count Leukocyte 4.8 - K/MM3 Normal No May 30 s 10.8 informati 2016 [#/volume on in 10:39 AM ] in source Blood data Drugs identified in Urine by Screen method Observa Value Referen Units Interpr Notes Date tion ce etation Range Positive urine drug screen samples are stored for 7 days. Contact the Lab if confirmation of positives is needed. Ampheta NEGATIV <1000 ng/mL No No May 30 mine E informa informa 2017 [Presen tion in tion in ce] in source source Urine data data by Screen method Barbitura <200 ng/mL No No May 30 nan informati informati 2016 [Mass/vol on in on in ume] in source source Urine by data data Screen method Benzodiaz 200 ng/mL ng/mL No No May 30 epines informati informati 2016 [Mass/vol on in on in ume] in source source Serum or data data Plasma by Screen method Cocaine <300 ng/g No No May 30 [Mass/vol informati informati 2016 ume] in on in on in Unspecifi source source ed data data specimen Methadone <300 ng/mL No No May 30 informati informati 2016 [Mass/vol on in on in ume] in source source Unspecifi data data ed specimen Opiates <300 ng/mL No No May 30 [Mass/vol informati informati 2016 ume] in on in on in Unspecifi source source ed data data specimen Phencycli <25 ng/mL No No May 30 dine informati informati 2016 [Mass/vol on in on in ume] in source source Unspecifi data data ed specimen 11-Hydr NEGATIV <50 ng/mL No No May 30 oxy E informa informa 2017 delta-9 tion in tion in source source tetrahy data data drocann abinol [Presen ce] in Unspeci fied specime n Choriogonadotropin.beta subunit ( test) [Presence] in Serum or Plasma Observa Value Referen Units Interpr Notes Date tion ce etation Range Choriog 0 No mIU/ML No NON-PRE April 08 onadotr informa informa GNANT 2017 opin.be tion in tion in FEMALES 10:12 ta source source AM subunit data data REFEREN CE (pregna RANGE = ncy 0 - 6 test) mIU/mLG [Presen estatio ce] in nal Age Serum or HCG Plasma RANGE0. 2 WEEKS 5 - 501-2 WEEKS 50 - 5002-3 WEEKS 100 - 5,0003- 4 WEEKS 500 - 10,0004 -5 WEEKS 1,000 - 50,0005 -6 WEEKS 10,000 - 100,000 6-8 WEEKS 15,000 - 200,000 2-3 MONTHS 10,000 - 100,000
--- OUTSIDE RECORDS SUMMARY | 2017-10-12 09:52 | External Medical Summary Rpt ---
Author Author EMMANAMAN Perez, JARON Betyah Organization [employer] Address Unknown Phone Unavailable [...] NEGATIVE FOR OSB, DOWN SYNDROMEA ND TRISOMY 18.[facility] SITE:[facility] OR [id number] [place] [place], [place] [address]DXL: TODD Leyva MDBRAWEI H: [phone] 341LAB: Gestation [...] as: Immunoa NEGATIV ssay [facility], [place] [id number]Lab Directo r: Roland falcon PhD, Phone: [phone] Reagin Ab [Titer] in Serum by RPR Observa Value Referen Units Interpr Notes Date tion ce etation Range Reagin Ab NonRea<1: No No 05/31/17 May 30 [Titer] 1 informati informati 1927:RPR 2017 in Serum on in on in QUANT 10:39 AM by RPR source source previousl data data y reported as: NON REACTIVEP [facility] at: [facility], [place] [id number] Mold Cleaner: Roland Raman PhD, Phone: [phone] Rubella virus IgG Ab [Units/volume] in [...]
[2017-10-12 10:15] LABS: UTC STREP SCREEN NOT DETECTED (NOTDETECTED)
--- NOTE | 2017-10-12 10:33 | Urgent Treatment Center Report ---
History of Present Issue Date/Time Seen by Provider 10/12/17 1022 Visit Reason Pt arrived:Walked Presenting Problem:COUGH, CONGESTION, SORE THROAT Location if Accident: Onset of symptoms date/time:/ or onset unknown for:MEDICAL HX UNKNOWN Have you (or family members/close friends) recently traveled outside the [place]? N If Yes, where/when: Have you had exposure to infectious disease within the past month? TB? Other? Specify: c/o cough and nasal congestion starting Friday, 4 days ago. Currently 7 months . Denies vaginal leaking, bleeding, cramping, abdominal pain or change in movement. Possible low grade fevers, hasnt monitored. Both children with same symptoms. Flonase helping "somewhat". "shortness of breath" ( feeling the need to breath deep not acutely short of breath) improved with albuterol neb. Tylenol helping headache. Source patient Exam Limitations no limitations ALLERGIES Coded Allergies: erythromycin base (Intermediate, I-HIVES, STOMACH UPSET 09/30/16) methylergonovine (From Methergine) (EDEMA 09/30/16) oxycodone (HEART RACES 09/30/16) Home Medications Reported Medications MULTIVITS,CA,MINERALS/IRON/FA (Women's Daily Caplet) 1 TAB PO DAILY History Medical History General CAD? No Angina: No NH: No Hypertension? No Hyperlipidemia? No CHF? No DVT? No PE? No COPD? No Asthma? No Anemia? No GERD? No Gastric ulcers? No GI Bleed? No Hernia? Yes Thyroid Problems? No Hypothyroidism? No CVA? No Seizures? No Diabetes? No Insulin Dependent: No Insulin Pump: No Home FSBS? No Renal Insuffiency? No UTI? Yes Stones? No BPH? No GB Disease: No Nephritic Syndrome? No Asplenia? No Hepatitis? No Sickle Cell Disease? No Arthritis? No Migraines? No Cataracts? No Glaucoma? No MRSA? No HIV? No TB? No Anxiety? No Depression? No Cancer? No More? No Immunization HX DT/Tetanus 1-4 Years Ago Flu LAST YEAR Pneumonia Refuses Surgical Hx Previous Surgery?Y X 2 WISDOM TEETH EXTRACTION D & C UMBILICAL REPAIR Family History Family HX Diabetes No CAD No Hypertension Yes Hyperlipidemia Yes Cancer Yes TB No Social History Smoking Hx Smoker: Never Smoker Tobacco: No Alcohol Alcohol: No Review of Systems All Other Systems Reviewed and Negative Constitutional see HPI, denies malaise, denies weakness Eyes denies drainage ENT see HPI, ear pain, nose discharge. denies: throat pain. Respiratory see HPI, cough (nonprod), denies wheezing Cardiovascular denies chest pain, denies palpitations Gastrointestinal see HPI Musculoskeletal denies joint pain Skin denies rash Psychiatric/Neurological denies headache Physical Exam Vital Signs Vital Signs Date Time Temp Pulse Resp B/P Pulse O2 O2 Flow FiO2 Ox Delivery Rate 10/12 1107 98.9 92 16 122/69 98 10/12 0957 98.9 92 16 122/69 98 General Appearance normal appearance, no apparent distress Ear, Nose, Throat normal pharynx, nasal congestion, left TM intact but dull and erythematous, right TM and sachi EACs unremarkable Neck non-tender, supple Respiratory Status Yes: trachea midline, chest symmetrical, non productive cough. No: respiratory distress, use of accessory muscles, pain on inspiration, pain on expiration. Lung Sounds anterior: lungs clear. posterior: lungs clear. bilateral: lungs clear. Cardiovascular regular rate/rhythm, no peripheral edema, no murmur Neurologic alert, oriented x 3 Mental status normal mood/affect Skin normal color, warm/dry Lymphatic no adenopathy Medical Decision Making LABS/Meds/Orders Pt receiving controlled substance in ED? No Results/Orders Laboratory Tests 10/12/17 1008: Influenza Type A Ag NOT DETECTED, Influenza Type B Ag NOT DETECTED, Group A Strep Screen NOT DETECTED Orders Procedure Date/time Status [facility] STREP SCREEN 10/12 1008 Complete UTC FLU A,B 10/12 1008 Complete Departure Departure Time of Disposition 1102 Disposition AR Home or Self Care(routine) Clinical Impression Primary Impression: Left otitis media Qualifiers: Otitis media type: unspecified Qualified Code: H66.92 - Otitis media, unspecified, left ear Condition STABLE Referrals Doug Cleveland MD ANY change in baby movement, leaking, bleeding, abdominal pain, recommendations for OTC medications prior to taking them Elinor Naylor MD (Family) Immediately for new or worsening symptoms, no noticeable improvement in 48-72 hours AND in 10-14 days to ensure ears are back to baseline. Patient Instructions DI for Otitis Media (Middle Ear Infection)-Child Additional Instructions * Start antibiotic BILLY and be sure to take as ordered for the FULL length of time although you should start to feel better in 24-48 hours. * Monitor Temp. Tylenol every 4 hours as needed no more then 5 times a day or 4000mg in 24 hours. NO ibuprofen/motrin/aleve. * Encourage fluids, water, Gatorade, PowerAde, pedialyte if infant/toddler/child * warm compress often helps when placed over ear if painful * If Dr. Cleveland ok with it, continue flonase. Ensure all over the counter medications are on your safe to take list or check with first * sleep elevated Discharge Counseling Counseled pt/family regarding diagnosis, test results, medications/RX, home care, follow up needs Prescriptions Current Visit Scripts AMOXICILLIN (Amoxicillin 875MG Tab) 875 MG PO BID #20 TAB at 0634
[2017-10-12] MEDS ORDERED: AMOXICILLIN875 MG PO (11:05)
[2017-10-12 11:07] VITALS: BP 122/69
== END 2017-10-12 11:08 | disposition home or self-care (01) ==
LOC: UTC 09:46
PROVIDERS: Nurse Practitioner Family
DX: H66.92 Otitis media, unspecified, left ear (principal); Z33.1 Pregnant state, incidental